=== PATIENT | female | born 1975 | race Caucasian/White ===

== ENCOUNTER 2023-02-02 08:24 | Day surgery (SDC) | payer OTHER, SELFPAY ==
[2023-02-02] VITALS (8 sets, daily range): BP systolic 120–165; BP diastolic 80–113; PULSE 56–76; RESP 14–18; TEMP 36.1–36.6; O2SAT 95–97; BMI 22.8
--- NOTE | 2023-02-02 08:58 | W.PM.OPSUD ---
Surgery/Procedure H&P Update DATE OF PROCEDURE: February 02, 2023 DATE H&P PERFORMED: 01/27/23 H&P UPDATE INFORMATION: I have reviewed H&P completed within last 30 days, I have examined patient prior to procedure and No changes to prior documentation PLANNED PROCEDURE: Operation Date: 02/02/23 10:20 Proposed Procedures p 45261 excision of subcutaneous mass of back R22.2(Not Applicable) - Aniket Stoner, DO
[2023-02-02] MEDS: sodium chloride 0.9% 1,000 ML 30 ML IV (09:13)
[2023-02-02 09:27] LABS: OR HCG Qualitative Urine Negative (Negative)
--- NOTE | 2023-02-02 09:27 | ANES.PREANE2 ---
Pre-Anesthetic Assessment Height/Weight: Height 1.65 m Weight 62.142 kg Temp Pulse Resp BP Pulse Ox O2 Del Method 97.5 F L 76 16 137/113 96 Room Air 02/02/23 09:07 02/02/23 09:07 02/02/23 09:07 02/02/23 09:07 02/02/23 09:07 02/02/23 09:07 Operation Date: 02/02/23 10:20 Proposed Procedures p 65561 excision of subcutaneous mass of back R22.2(Not Applicable) - Aniket Stoner DO Familial anesthetic complications: None Was Beta Ziggy taken within 24 hours: N/A Was Clonidine taken within 24 hours: N/A Last intake: Intake Last Liquid Date 02/01/23 Last Liquid Time 23:00 Last Solid Date 02/01/23 Last Solid Time 23:00 Social No tobacco Exam alert, oriented x 3, clear to auscultation bilaterally and regular rate & rhythm Airway Mallampati: Class II Dentition: full Anesthetic Plan ASA status: 2 Anesthesia: MAC Risk of > 500 ml blood loss (7ml/kg in children): No Medications/Allergies Home Medications Medication Instructions Recorded Confirmed Last Taken Type paroxetine HCl 20 mg tablet (Paxil) 20 mg PO DAILY 90 days #90 tabs 06/11/22 01/30/23 01/30/23 Rx Allergies Allergy/AdvReac Type Severity Reaction Status Date / Time No Known Allergies Allergy Verified 01/30/23 11:01 Current Medications Generic Name Dose Route Start Last Admin Trade Name Freq PRN Reason Stop Dose Admin Sodium Chloride 1,000 mls @ 30 mls/hr 02/02/23 09:00 02/02/23 09:13 Sodium Chloride 0.9% IV 02/03/23 08:59 30 mls/hr .Q24H DANIELITO Administration PFSH Anesthesia Medical History (Updated 01/27/23 @ 10:22 by Aniket Stoner DO) Anxiety and depression Surgical History (Updated 01/27/23 @ 10:22 by Aniket Stoner DO) History of cryosurgery History of right breast biopsy Family History Grandfather Diabetes maternal Denies family history of Chronic kidney disease (CKD) Lung disease Cancer Hypertension Stroke Social History Smoking and tobacco status: current every day smoker cigarettes Packs smoked per day: 1 Alcohol intake: never Substance/Drug Use: never Adopted: No Caregiver/support person: No Lives independently: No service: No Current occupational status: unemployed Sexually active: Yes Do you think of yourself as: Straight/Heterosexual Current gender identity: Female Data Anesthesia Cardiac Studies: No Data to Display
[2023-02-02] MEDS: ceFAZolin 2,000 MG in sodium chloride 0.9% (plus) 50 ML 100 MG IV (09:37)
--- NOTE | 2023-02-02 10:01 | P.OP_ITS ---
Operative Report Date of procedure: February 02, 2023 Pre-op diagnosis: Subcutaneous mass of back Post-op diagnosis: same Procedure done: Excision of subcutaneous mass of back Implants: None Specimens removed/disposition: Subcutaneous mass of back Surgeon: Aniket Stoner DO Anesthesia: MAC and Local Estimated blood loss (mL): 5 Complications: None apparent Brief History: This is a very pleasant 47-year-old female with an enlarging subcutaneous mass of her back. She desired excision. The risk and benefits were explained and documented. Procedure: The area was inspected prepped and draped in the usual sterile fashion. 2% lidocaine with epinephrine was used to anesthetize the area around the lesion. The lesion measured 5 cm in greatest diameter. A 15 blade scalpel then used to make an elliptical excision measuring 5 centimeters in length. Incision was c arried down to subcutaneous tissue and the specimen was passed off. 2-0 nylon suture was used to close the skin in a simple interrupted fashion.. Hemostasis was noted. Sterile bandages were applied. Patient tolerated the procedure well.
[2023-02-02] MEDS: lidocaine-epi 2% 20 mL INJ 8 ML INJECTION (10:06)
[2023-02-02] MEDS: neomycin-poly-bacitracin oint 28 gm 1 APPLIC TOPICAL (10:07)
--- NOTE | 2023-02-02 11:15 | ANE.PACU2 ---
Inpatient post-anesthesia follow up: Airway intact: Yes Vital signs: Temperature 97 F Pulse Rate 61 Respiratory Rate 18 Blood Pressure 165/95 Pulse Oximetry 97 Oxygen Delivery Me thod Room Air Oxygen Flow Rate Fraction of Inspir ed Oxygen Hydration adequate: Yes Nausea and vomiting: No Pain level: 1 Mental status: Baseline
== END 2023-02-02 11:15 | disposition home or self-care (01) ==
PROVIDERS: PCP Registered Nurse; Visit Provider Surgery
PROC: (CPT 11406; principal; 2023-02-02 10:20)
DX: L72.0 Epidermal cyst (principal); F17.210 Nicotine dependence, cigarettes, uncomplicated
CPT/HCPCS: 11406; 81025; 84703; 88307; J0690; J2704; J3010; J7030

== ENCOUNTER 2023-02-04 18:34 | Emergency (ER) | payer OTHER, SELFPAY ==
[2023-02-04 18:35] VITALS: BMI 22.4
[2023-02-04 18:43] VITALS: BP 171/108; PULSE 118; RESP 17; TEMP 38.2; O2SAT 93
--- NOTE | 2023-02-04 18:52 | W.ED.HA ---
HPI - Headache General: Chief Complaint: Headache Stated Complaint: headache, post surgery, high fever Time Seen by Provider: 02/04/23 18:35 Source: patient and family Mode of arrival: ambulatory Limitations: no limitations History of Present Illness: Patient presents to the emergency department today for evaluation treatment of complaints of headache and fever. She indicates new onset this afternoon. Incidentally, patient had an epidermal inclusion cyst removed on 02/[address] Stoner. The operative note indicated no acute complications. Patient states the area was itching and she had her bandaging removed today. She put Neosporin over her incision but was told it looked red . Patient states she does not feel well. She began getting chills this afternoon and when she checked her temperature, states she had a fever of 102. She also notes a headache. Patient is somewhat nauseated but has not had vomiting or diarrhea. She denies abdominal pains. She denies nasal congestion or cough. No sore throat to report. Patient believes she did not have a Koo catheter placed during her procedure. She is not on any antibiotics at this time but got Cefazolin 2g IV during her procedure according to the chart review. Patient reports a history of headaches but states she does not think this is the same. She admits she has been dealing with elevated blood pressure readings for a while . Patient has taken no medication for her symptoms-including the pain medication prescribed after her procedure. Review of Systems General: Reports: 10 or more systems reviewed and unremarkable except in HPI and below PFSH ED PFSH: Medical History Anxiety and depression Surgical History History of cryosurgery History of right breast biopsy Family History Grandfather Diabetes maternal Denies family history of Chronic kidney disease (CKD) Lung disease Cancer Hypertension Stroke Social History Smoking and tobacco status: current every day smoker cigarettes Packs smoked per day: 1 Alcohol intake: never Substance/Drug Use: never Adopted: No Caregiver/support person: No Lives independently: No service: No Current occupational status: unemployed Sexually active: Yes Do you think of yourself as: Straight/Heterosexual Current gender identity: Female Physical Exam Const: COMMON NORMALS: no acute distress, average body habitus and patient oriented x3 OTHER: Patient with varying blood pressure readings here in the emergency department. Patient with varying heart rates. Temperature 100.8 upon arrival. HENMT: COMMON NORMALS: normocephalic, atraumatic, hearing grossly normal bilaterally, Normal external nose present and moist oral mucous membranes HEAD & SCALP: normocephalic and atraumatic NOSE: Normal external nose present Eye: COMMON NORMALS: Equal, round and reactive pupils present, EOMs intact bilaterally and conjunctivae normal CONJUNCTIVA: Yes conjunctivae normal PUPIL: Yes Equal, round and reactive pupils present Neck/C-Spine: COMMON NORMALS: full ROM, no meningeal signs and no JVD Lymph: LYMPHATIC: no lymphadenopathy noted Resp: COMMON NORMALS: normal respiratory effort, No retractions and No use of accessory muscles Cardio: COMMON NORMALS: no JVD, regular rate and regular rhythm RATE: regular rate RHYTHM: regular rhythm GI: COMMON NORMALS: Normal to inspection, nondistended, normoactive bowel sounds present : COMMON NORMALS: Yes no CVA tenderness BLADDER/KIDNEY EXAM: Yes no CVA tenderness Back/Pelvis: COMMON NORMALS: no CVA tenderness and thoraco-lumbar ROM normal Extremity: COMMON NORMALS: normal to inspection, full ROM and capillary refill normal Neuro: COMMON NORMALS: patient oriented x3 MENINGEAL SIGNS: Yes no meningeal signs Psych: COMMON NORMALS: mental status grossly normal, Normal thought process present, cooperative, normal affect and activity/motor behavior normal THOUGHT PROCESS: Normal thought process present Skin: NARRATIVE SKIN EXAM: Patient has a healing surgical incision to her upper left back approximately 5 cm in total length. There is slight erythema right along the incision site but no signs of active draining. Sutures appear intact and there is no sign of wound dehiscence. Patient was tender on palpation but skin is soft without findings of induration. Course Vital Signs: Vital signs: Vital Signs Temperature 100.1 F H 02/04/23 19:28 Pulse Rate 102 H 02/04/23 20:35 Respiratory Rate 18 02/04/23 20:35 Blood Pressure 146/98 02/04/23 20:35 Pulse Oximetry 97 02/04/23 20:35 Oxygen Delivery Me thod Room Air 02/04/23 20:35 MDM - Headache Medical Decision Making Patient did present febrile with elevated blood pressure readings however, both heart rate and blood pressure came down significantly during her time here in the emergency department. She does have a primary care doctor and a blood pressure cuff at home. We discussed logging blood pressure readings throughout the day and having a follow-up appointment to discuss blood pressures. Second opinion provided by Dr. Strong regarding the patient's evaluation today. Since she does have a fever and a slightly elevated white blood cell count he recommended empiric skin coverage with Keflex for potential postoperative skin infection. Still, patient needs to carefully monitor for any change or worsening in her condition including any new onset of stiff neck, visual changes, vomiting, or extremity rash. Patient was notified of these concerns with instructions to be seen and reevaluated in the emergency department immediately if they occur. Patient verbalized understanding and agreement to treatment plan. Differential Diagnosis Likely headache; Unlikely migraine, subarachnoid hemorrhage or meningitis Lab Data 02/04/23 19:02 02/04/23 19: Laboratory Results WBC 16.79 10^3/uL (3.29-11.43) H 02/04/23 19: RBC 4.88 10^6/uL (3.85-5.65) 02/04/23 19: Hgb 15.40 g/dL (11.27-16.99) 02/04/23 19: Hct 43.9 % (36-47) 02/04/23 19: MCV 90.0 fl (85-98) 02/04/23 19: MCH 31.6 pg (27-33) 02/04/23 19: MCHC 35.1 g/dL (30-55) 02/04/23 19:02 RDW 13.0 % (12.1-15.1) 02/04/23 19: Plt Count 193 10^3/cmm (157-399) 02/04/23 19: MPV 10.5 fL (7.4-10.4) H 02/04/23 19:02 Neut % (Auto) 87.5 % 02/04/23 19: Lymph % (Auto) 6.3 % 02/04/23 19: Newton % (Auto) 5.2 % 02/04/23 19: Eos % (Auto) 0.5 % 02/04/23 19:02 Baso % (Auto) 0.2 % 02/04/23 19:02 Neut # (Auto) 14.69 10^3/uL (1.8-7.7) H 02/04/23 19:02 Lymph # (Auto) 1.1 10^3/uL (0.8-4.8) 02/04/23 19:02 Newton # (Auto) 0.9 10^3/uL (0.2-0.9) 02/04/23 19:02 Eos # (Auto) 0.1 10^3/uL (0.0-0.8) 02/04/23 19:02 Baso # (Auto) 0.0 10^3/uL (0.0-0.1) 02/04/23 19:02 Nucleated RBC % (auto) 0 % 02/04/23 19:02 Nucleated RBCs # 0.0 /100WBC 02/04/23 19:02 Sodium 136 mmol/L (136-145) 02/04/23 19:02 Potassium 4.2 mmol/L (3.5-5.1) 02/04/23 19:02 Chloride 100 mmol/L (98-107) 02/04/23 19:02 Carbon Dioxide 24 mmol/L (22-29) 02/04/23 19:02 Anion Gap 16.2 (5-19) 02/04/23 19:02 BUN 15 mg/dL (6-20) 02/04/23 19:02 Creatinine 0.8 mg/dL (0.5-0.9) 02/04/23 19:02 GFR Calculation 76.2 mL/min (90-130) L 02/04/23 19:02 Glucose 87 mg/dL (65-115) 02/04/23 19:02 Calculated Osmolality 282 mOsm/kg (285-295) L 02/04/23 19:02 Calcium 9.0 mg/dL (8.5-10.5) 02/04/23 19:02 Total Bilirubin 0.5 mg/dL (0.15-1.2) 02/04/23 19:02 AST 22 U/L (0-32) 02/04/23 19:02 ALT 13 U/L (0-33) 02/04/23 19:02 Alkaline Phosphatase 90 U/L (35-105) 02/04/23 19:02 Total Protein 6.9 g/dL (6.6-8.7) 02/04/23 19:02 Albumin 4.5 g/dL (3.5-5.2) 02/04/23 19:02 Globulin 2.4 g/dL (1.3-4.6) 02/04/23 19:02 Urine Color Yellow (Yellow) 02/04/23 20:02 Urine Appearance Clear (CLEAR) 02/04/23 20:02 Urine pH 6.5 (5-7) 02/04/23 20:02 Ur Specific Floris 1.015 (1.005-1.030) 02/04/23 20:02 Urine Protein Neg (Negative) 02/04/23 20:02 Urine Glucose (UA) Norm (Normal) 02/04/23 20:02 Urine Ketones 1+ (Negative) H 02/04/23 20:02 Urine Blood 3+ (Negative) H 02/04/23 20:02 Urine Nitrate Negative (Negative) 02/04/23 20:02 Urine Bilirubin Neg (Negative) 02/04/23 20:02 Urine Urobilinogen Neg mg/dL (Negative) 02/04/23 20:02 Ur Leukocyte Esterase Negative (Negative) 02/04/23 20:02 Urine RBC 10-15 /hpf (0-2) H 02/04/23 20:02 Urine WBC None /hpf (0-5) 02/04/23 20:02 Ur Squamous Epith Cells 0-4 /hpf (0-5) H 02/04/23 20:02 Amorphous Sediment Not Reportable 02/04/23 20:02 Urine Bacteria Trace /hpf (NONE) 02/04/23 20:02 Urine Mucus 1+ /hpf 02/04/23 20:02 SARS-CoV-2 Ag (Rapid) negative (Negative) 02/04/23 19:26 No radiology studies performed this visit Discharge Plan Discharge Patient Disposition: Home Clinical Impression: Headache, Postoperative fever Condition: Stable Prescriptions: New cephalexin 500 mg capsule 500 mg PO Q6H 7 Days Qty: 28 0RF No Action paroxetine HCl [Paxil] 20 mg tablet 20 mg PO DAILY 90 Days Qty: 90 4RF hydrocodone-acetaminophen 10-325 mg tablet 1 tab PO Q6H PRN (Reason: pain) Qty: 10 0RF Rx Instructions: May take half of a tab at a time Colace 100 mg capsule 100 mg PO BID Qty: 10 0RF Discharge Orders: Discharge ED (Routine); Ordered 02/04/23 Ordered By: Anais Lockhart Referrals: Dillon Wolff, [employer] [Primary Care Provider] - Discharge Diet: Usual diet Discharge Activity: Increase activity as tolerated Patient Instructions: Fever - Adult Activity Restrictions/Additional Instructions: Evaluation today here shows no acute concerns and your lab work. You do have an active fever and a slightly elevated white blood cell count and given we have no other sources other than your recent surgery, we are going to cover for potential skin infection. We provided you a first dose of antibiotic here in the emergency department with rest to be picked up and continued in the morning. Continue with wound and bandaging care as previously instructed. Keep a close eye on any spreading redness or worsening fevers. If your headache develops into the worst headache of your life, you are unable to move your neck, you develop profuse vomiting or visual changes or any type of spotted rash on your arms or legs need to be seen in the emergency department immediately. Coding Level of Care Code ED [facility]
[2023-02-04 19:09] LABS: Basophils % 0.2 %; Eosinophils # 0.1 10^3/uL (0.0-0.8); Eosinophils % 0.5 %; Hematocrit 43.9 % (36-47); Lymphocytes # 1.1 10^3/uL (0.8-4.8); Lymphocytes % 6.3 %; Mean Corpuscular HGB Conc 35.1 g/dL (30-55); Mean Corpuscular Hemoglobin 31.6 pg (27-33); Mean Platelet Volume 10.5 fL (7.4-10.4); Monocytes # 0.9 10^3/uL (0.2-0.9); Monocytes % 5.2 %; Neutrophils # 14.69 10^3/uL (1.8-7.7); Neutrophils % 87.5 %; Nucleated Red Blood Cells % 0 %; Platelet Count 193 10^3/cmm (157-399); Red Blood Count 4.88 10^6/uL (3.85-5.65); White Blood Count 16.79 10^3/uL (3.29-11.43)
[2023-02-04] MEDS: metoclopramide 5 mg/mL SDV 2 mL 10 MG IVP (19:20)
[2023-02-04] MEDS: ketorolac 30 mg/mL INJ IVP (19:20)
[2023-02-04] MEDS: sodium chloride 0.9% 1,000 ML 999 ML IV (19:22)
[2023-02-04 19:25] LABS: Alanine Aminotransferase 13 U/L (0-33); Albumin Level 4.5 g/dL (3.5-5.2); Alkaline Phosphatase 90 U/L (35-105); Anion Gap 16.2 (5-19); Aspartate Amino Transferase 22 U/L (0-32); Blood Urea Nitrogen 15 mg/dL (6-20); Carbon Dioxide 24 mmol/L (22-29); Chloride 100 mmol/L (98-107); Globulin 2.4 g/dL (1.3-4.6); Glomerular Filtration Rate 76.2 mL/min (90-130); Glucose 87 mg/dL (65-115); Osmolality Calculated 282 mOsm/kg (285-295); Potassium 4.2 mmol/L (3.5-5.1); Sodium 136 mmol/L (136-145); Total Bilirubin 0.5 mg/dL (0.15-1.2); Total Protein 6.9 g/dL (6.6-8.7)
[2023-02-04 19:28] VITALS: BP 138/97; PULSE 101; RESP 18; TEMP 37.8; O2SAT 100
[2023-02-04 19:47] LABS: SARS Covid-2 Antigen negative (Negative)
[2023-02-04 20:26] LABS: Bilirubin Urine Neg (Negative); Blood Urine 3+ (Negative); Glucose Urine UA Norm (Normal); Ketones Urine 1+ (Negative); Leukocyte Esterase Urine Negative (Negative); Nitrate Urine Negative (Negative); Protein Urine Neg (Negative); Specific Gravity, Urine 1.015 (1.005-1.030); Urine Appearance Clear (CLEAR); Urine Color Yellow (Yellow); Urobilinogen Urine Neg (Negative); pH Urine 6.5 (5-7)
[2023-02-04 20:27] LABS: Add Urine Culture? No; Add Urine Microscopic? YES; Bacteria Urine TRACE /hpf; Mucus Urine 1+ /hpf; Squamous Epithelial Cell Urine 0-4 /hpf (0-5)
[2023-02-04 20:35] VITALS: BP 146/98; PULSE 102; RESP 18; O2SAT 97
[2023-02-04] MEDS: cephALEXin 500 mg Capsule PO (20:52)
[2023-02-04 20:59] VITALS: BP 146/98; PULSE 102; RESP 18; O2SAT 98
== END 2023-02-04 21:00 | disposition home or self-care (01) ==
PROVIDERS: Emergency Provider Physician Assistant; PCP Registered Nurse
DX: R51.9 Headache, unspecified (principal); R50.82 Postprocedural fever; Z11.52 Encounter for screening for COVID-19; F17.210 Nicotine dependence, cigarettes, uncomplicated
CPT/HCPCS: 36415; 80053; 81001; 85025; 87426; 96361; 96374; 96375; 99284; J1885; J2765; J7030

== ENCOUNTER → 2024-11-22 09:05 | Outpatient (BNVA) | payer OTHER, SELFPAY | PROVIDERS: PCP Registered Nurse; Referring Provider Registered Nurse; Visit Provider Psychiatry & Neurology Neurology | DX: G62.9 Polyneuropathy, unspecified (principal); R20.8 Other disturbances of skin sensation | CPT/HCPCS: 36415; 82306; 82607; 82746; 83735; 83921; 84155; 84165; 84207; 84425; 84439; 84443; 84591; 86140; 86160; 86162; 86235; 86255; 86334; 86376; 86431 ==

== ENCOUNTER 2024-12-05 08:27 | Outpatient (CLI) | payer OTHER, SELFPAY ==
--- NOTE | 2024-12-05 08:45 | MR_ITS ---
WS: [id number] MRI HEAD WITH CONTRAST TECHNIQUE: Sagittal T1, T2 axial, T2 axial FLAIR, axial susceptibility weighted imaging, axial diffusion weighted images, and coronal T2 images were obtained. Pre and post-T1 axial and post T1 coronal images. ADC and FSPGR images. CLINICAL INFORMATION: G62.9 - Polyneuropathy, unspecified COMPARISON: None. FINDINGS: No evidence of restricted diffusion to suggest acute ischemia. Mild patchy supratentorial white matter changes are nonspecific in a patient of this age but can be seen with hypertension, diabetes, and migraine headaches. Normal posterior fossa. Normal vascular flow voids at the skull base. No extra-axial fluid collections. Paranasal sinuses are well aerated. Mastoid air cells are well aerated. No hemosiderin. Normal optic chiasm and pituitary infundibulum. Proximal 7th and 8th cranial nerves appear normal. Normal trigeminal nerve root entry zones. No abnormal gadolinium enhancement. MR/MR head wo/w con [id number] IMPRESSION: 1. No evidence of restricted diffusion to suggest acute ischemia. 2. Few small foci of T2 hyperintensity in the supratentorial white matter nons pecific in a patient of this age but can be seen with hypertension diabetes and migraine headaches. 3. No abnormal gadolinium enhancement. 4. Proximal 7th and 8th cranial nerves appear normal. Normal trigeminal nerve root entry zones. 5. No hemosiderin on the susceptibly weighted images.
[2024-12-05] MEDS: gadobenate dimeglumine 20 mL vial 10 ML IV (10:00)
== END 2024-12-05 08:28 | disposition home or self-care (01) ==
LOC: RAD 08:28
PROVIDERS: PCP Registered Nurse; Visit Provider Psychiatry & Neurology Neurology
DX: G62.9 Polyneuropathy, unspecified (principal); F60.0 Paranoid personality disorder; F41.9 Anxiety disorder, unspecified; F32.9 Major depressive disorder, single episode, unspecified; G93.9 Disorder of brain, unspecified; R90.82 White matter disease, unspecified
CPT/HCPCS: 70553; A9577